=== PATIENT | male | born 1965 | race African-American/Black ===

== ENCOUNTER 2024-04-13 01:35 | Emergency (ER) | payer MEDICAID ==
[~2024-04-13] VITALS: Ht 170.2 cm; Wt 90.7 kg
[2024-04-13] MEDS ORDERED: LURA20TA PO (01:54)
[2024-04-13] MEDS ORDERED: KETOROLAC TROMETHAMINE 30 MG INJ ONE (02:33)
[2024-04-13] MEDS ORDERED: HYDROCODONE/APAP 5-325MG TABLET ONE (02:33)
[2024-04-13] MEDS: KETOROLAC TROMETHAMINE 30 MG INJ IM ONE (02:37)
[2024-04-13] MEDS: HYDROCODONE/APAP 5-325MG TABLET PO ONE (02:37)
[2024-04-13] MEDS ORDERED: NAPR-1009 PO (04:03)
[2024-04-13] MEDS ORDERED: HYDR-4209 PO (04:03)
[2024-04-13 04:08] VITALS: BP 137/90; O2SAT 97
== END 2024-04-13 04:08 | disposition home or self-care (01) ==
LOC: ER 01:51
DX: S53.492A Other sprain of left elbow, initial encounter (principal); M54.42 Lumbago with sciatica, left side; F31.9 Bipolar disorder, unspecified; Z79.899 Other long term (current) drug therapy; W18.39XA Other fall on same level, initial encounter; Y93.89 Activity, other specified; Y92.89 Other specified places as the place of occurrence of the external cause; Y99.8 Other external cause status
CPT/HCPCS: 99284; 72100; 73070; 96372; J1885; A4606; A4663